=== PATIENT | female | born 1960 | race Caucasian/White ===

== ENCOUNTER → 2016-10-11 | Outpatient (CLI) | payer OTHER | LOC: RAD 13:43 | PROVIDERS: ATTEND Family Medicine | DX: Z12.31 Encounter for screening mammogram for malignant neoplasm of breast (principal) ==

== ENCOUNTER → 2016-12-20 | Outpatient (CLI) | payer OTHER ==
[~2016-12-20] MED LIST: ASPI-860 PO; BLAC160C PO; GFN600TCR PO; METH10CA PO; MULT1TAB69 PO; PHEN95TA30 PO
--- NOTE | 2016-12-20 13:14 | Diagnostic Imaging Report ---
INDICATION: Chronic left heel pain. DISCUSSION: Three views of the left foot were obtained, no comparison. No acute fracture, dislocation, or other osseous abnormality identified. No significant degenerative disease. Alignment is anatomic. Soft tissues are unremarkable. No radiopaque foreign body. IMPRESSION: 1. Negative left foot. Dictated by: Dictated on workstation # [id number]
== END ==
LOC: RAD 12:31
PROVIDERS: ATTEND Family Medicine
DX: M79.672 Pain in left foot (principal)